=== PATIENT | female | born 1965 | race Caucasian/White ===

== ENCOUNTER 2018-12-23 06:05 | Day surgery (SDC) | payer OTHER ==
[~2018-12-23] VITALS: Ht 142.2 cm; Wt 59.0 kg
[~2018-12-23 06:05] MED LIST: COQ-10100 MG PO; CORAL CALCIUM1 EAC2 PO; DAILY VITAMIN1 EAC2 PO; ESTRADIOL1 EA10 TD; FEXOFENADINE HC60 MG PO; FLOVENT HFA12 G1 INH; IBUPROFEN200 MG PO; KRILL OIL 1,001 EAC1 PO; LINOLEIC ACID MISC; LUTEIN20 MG PO; NASONEX17 GM NAS; ORTHO TRI-CYCL1 EACH PO; PATADAY2.5 ML OP; PROBIOTIC1 EAC1 PO; PROMETRIUM200 MG PO; PROVENTIL HFA6.7 GM INH; TYLENOL EXTRA500 MG PO; VITAMIN D31000 UNIT PO
--- NOTE | 2018-12-23 08:38 | NUR ---
12/23/18 0838 Savita Lawson 0800 PT ARRIVED IN PACU SLEEPY WITH NO C/O'S. 0815 OXYGEN REMOVED. SATS 97% ON RA. AT BEDSIDE TALKING WITH PT. 0830 AWAKE TALKING TO STAFF. NO C/O'S.
--- NOTE | 2018-12-23 08:38 | NUR ---
PT IS BACK TO FROM PACU. SHE IS SLEEPY UPON ARRIVAL, BUT EASY TO AROUSE. SHE IS DENYING PAIN AND NAUSEA. CALL LIGHT IS WITHIN REACH. WATER ON BEDSIDE TABLE. NO ADDITIONAL NEEDS AT THIS TIME. WILL CONTINUE TO MONITOR.
--- NOTE | 2018-12-23 09:26 | NUR ---
VIET 0915: PT IS ASSISTED UP OOB TO THE BATHROOM. SHE IS ABLE TO VOID APPROXIMATELY 175ML'S OF YELLOW URINE. PT THREW HER TOLIET PAPER INTO THE HAT AND URINATED ON HER PERIPAD, WHICH SHE THREW IN THE GARBAGE. IT IS HARD TO DETERMINE THE AMOUNT OF DRAINAGE WAS/IS ON THE PERIPAD DUE TO BEING SATURATED IN URINE. SHE IS GIVEN A FRESH PERIPAD AND HELPED BACK TO HER ROOM. SHE REQUESTS SALTINE CRACKERS.
--- NOTE | 2018-12-23 10:23 | NUR ---
VIET 0950: PT HAS MET DC INSTRUCTIONS. SHE INDICATES THAT SHE WOULD LIKE TO GO HOME. DC INSTRUCTIONS ARE GIVEN VERBALLY WITH THE PRESENT. THEY VERBALIZE UNDERSTANDING AND ASK QUESTIONS. PT IS TAKEN TO VEHICLE BY VOLUNTEER IN A WHEELCHAIR.
--- NOTE | 2019-01-20 09:20 | OR ---
[facility] [address] [place], [place] [address] Signed DATE OF OPERATION: 12/23/2018 SURGEON: Nola Elkins MD PREOPERATIVE DIAGNOSIS: Postmenopausal bleeding, probable endometrial polyp. POSTOPERATIVE DIAGNOSIS: Postmenopausal bleeding, probable endometrial polyp, pending pathology. PROCEDURE: Hysteroscopy, D and C. ANESTHESIA: General MAC. ESTIMATED BLOOD LOSS: Minimal. DRAINS: None. INDICATIONS AND FINDINGS: The patient is a 53-year-old female, 2, para 1, SAB 1, who has been having abnormal postmenopausal bleeding. Hysterosonogram was done, which revealed a probable polyp. She is on a hormone replacement therapy with a combination of estrogen and progesterone. At the time of surgery, exam under anesthesia revealed a normal-size uterus. The cavity sounded 7 cm. The great majority of the cavity was atrophic with a single small polyp. PROCEDURE: The patient was prepped and draped in the dorsal lithotomy position. A weighted speculum was placed. The anterior lip of the cervix was visualized and grasped with a single-tooth tenaculum. The cavity sounded to 7 cm. The endocervical canal was then dilated with some difficulty to a #8 dilator. The MyoSure device was introduced and the cavity evaluated. It primarily was atrophic with a small polyp in the lower segment. The hysteroscope was removed and D and C was done with a small tissue found. The cervix was then evaluated after removal of the tenaculum and there was some bleeding from that site, which did not respond to pressure. A [id number] x2 was placed with good hemostasis Electronically Signed By: NOLA ELKINS MD 01/20/19 0920 PATIENT NAME: MUNIRA DON OPERATIVE REPORT DATE OF : 69 REPORT #: [id number] PHYSICIAN: NOLA ELKINS MD PCP: DIPESH OSBORN MD REPORT IS CONFIDENTIAL AND NOT TO BE RELEASED WITHOUT AUTHORIZATION [facility] [address], [place] [address] Signed noted. The remaining instruments removed. The patient was taken to the recovery room in good condition. All sponge and needle counts were correct. Nola Elkins MD PJW/MODL /[id number] cc: Dr. Dipesh Osborn Copies: ~ Electronically Signed By: NOLA ELKINS MD 01/20/19 0920 PATIENT NAME: MUNIRA DON OPERATIVE REPORT DATE OF : 69 REPORT #: [id number] PHYSICIAN: NOLA ELKINS MD PCP: DIPESH OSBORN MD REPORT IS CONFIDENTIAL AND NOT TO BE RELEASED WITHOUT AUTHORIZATION
== END 2018-12-23 09:55 | disposition home or self-care (01) ==
LOC: DS 06:05
PROVIDERS: Obstetrics & Gynecology
PROC: 0UDB7ZZ Extraction of Endometrium, Via Natural or Artificial Opening (ICD-10-PCS; 2018-12-23)
PROC: 0UJD8ZZ Inspection of Uterus and Cervix, Via Natural or Artificial Opening Endoscopic (ICD-10-PCS; 2018-12-23)
PROC: 0UB97ZZ Excision of Uterus, Via Natural or Artificial Opening (ICD-10-PCS; principal; 2018-12-23 06:45)
DX: N84.0 Polyp of corpus uteri (principal); E66.9 Obesity, unspecified; N95.2 Postmenopausal atrophic vaginitis; J45.909 Unspecified asthma, uncomplicated; F41.9 Anxiety disorder, unspecified; Z68.29 Body mass index [BMI] 29.0-29.9, adult
CPT/HCPCS: 00952; 94640; J1100; J1885; J2250; J2405; J2704; J2765; J3010; J7120

== ENCOUNTER 2020-12-04 06:35 | Day surgery (SDC) | payer OTHER ==
[~2020-12-04] VITALS: Ht 142.2 cm; Wt 59.1 kg
[2020-12-04] MEDS ORDERED: SINGULAIR10 MG PO (06:54)
--- NOTE | 2020-12-04 08:48 | NUR ---
12/04/20 0848 Savita Lawson 0807 PT ARRIVED IN PACU SLEEPY LAYING ON L SIDE. ABD SOFT AND PASSING FLATUS. 0820 RESTING. REU. 0830 SITTING UP IN BED SIPPING ON WATER. 0845 GETTING DRESSED WITH STAND BY ASSIST. DC INSTRUCTIONS GIVEN. ALL QUESTIONS ANSWERED.
--- NOTE | 2020-12-04 09:19 | NUR ---
CONNECTED WITH PT'S . NO NEEDS OR QUESIONS WAITING IN RM READING. GAVE BLESSING, WILL FOLLOW
--- NOTE | 2020-12-06 13:07 | OR ---
[facility] [address] [place], [place] [address] Signed DATE OF OPERATION: 12/04/2020 SURGEON: Bear Nunn MD PREOPERATIVE DIAGNOSIS: Colon screening. POSTOPERATIVE DIAGNOSIS: Normal colon to cecum. PROCEDURE: Total colonoscopy. ANESTHESIA: Intravenous sedation, fentanyl 100 mcg, Versed 3 mg. INDICATION: This 55-year-old woman, patient of Dr. Osborn and Dr. Nola Elkins and is referred for screening colonoscopy. She has an uncertain family history regarding colon cancer as she is adopted. She has no symptoms of bleeding, diarrhea, or constipation. She is admitted to undergo screening colonoscopy. She understands the risks of bleeding, infection, and perforation. FINDINGS: The prep was excellent. Complete colonoscopy was undertaken of the cecum. There was no sign of polyps, diverticular formation, colitis, or cancer. DESCRIPTION OF PROCEDURE: The patient was brought to the endoscopy suite and placed in lateral decubitus position, given intravenous sedation to the point of slurred speech and nystagmus with full cardiopulmonary monitoring. Digital rectal examination was normal. An Olympus video colonoscope was passed in the rectum and manipulated throughout the colon ultimately visualizing the cecum. The ileocecal valve was normal. The scope was not easily advanced to intubate the cecum itself. Therefore, a biopsy forceps was used to elevate the mucosa behind the ileocecal valve identifying it as normal. The scope was then withdrawn more fully and examination throughout showed no sign of polyps, diverticular formation, colitis, or cancer. Retroflex view was normal as well. The scope was removed. The patient was taken to the recovery room in good condition. Electronically Signed By: BEAR NUNN MD 12/06/20 1307 PATIENT NAME: MUNIRA DON OPERATIVE REPORT DATE OF : 69 REPORT #: [id number] PHYSICIAN: BEAR NUNN MD PCP: DIPESH OSBORN MD REPORT IS CONFIDENTIAL AND NOT TO BE RELEASED WITHOUT AUTHORIZATION [facility] [address] [place], [place] [address] Signed CONCLUDING DIAGNOSIS: Normal colon to cecum. PLAN: Recommend a repeat colonoscopy in 10 years based on current standards, sooner if symptoms should develop include bleeding, diarrhea, or constipation. MD BOAZ Garcia/MODL /[id number] cc: MD Dr. Anurag Storm Copies: NOLA ELKINS MD ~ Electronically Signed By: BEAR NUNN MD 12/06/20 1307 PATIENT NAME: MUNIRA DON OPERATIVE REPORT DATE OF : 69 REPORT #: [id number] PHYSICIAN: BEAR NUNN MD PCP: DIPESH OSBORN MD REPORT IS CONFIDENTIAL AND NOT TO BE RELEASED WITHOUT AUTHORIZATION
== END 2020-12-04 08:50 | disposition home or self-care (01) ==
LOC: DS 06:35 → OPS 06:35 → DS 06:45 → OPS 08:50
PROVIDERS: ATTEND Surgery
DX: Z12.11 Encounter for screening for malignant neoplasm of colon (principal); J45.909 Unspecified asthma, uncomplicated; Z87.898 Personal history of other specified conditions; Z79.899 Other long term (current) drug therapy
CPT/HCPCS: 99153; G0500; J2250; J3010; J7121

== ENCOUNTER 2025-06-08 17:21 | Emergency (ER) | payer OTHER ==
[~2025-06-08] VITALS: Ht 142.2 cm; Wt 58.5 kg
[~2025-06-08 17:21] MED LIST changes: +SINGULAIR10 MG PO
[2025-06-08] MEDS ORDERED: SODIUM CHLORIDE 0.9% 1,000 ML IV PRN (17:45)
[2025-06-08 17:59] LABS: BASOPHILS 0.1 % (0.1-1.2); EOSINOPHILS 0 % (0.7-5.8); LYMPHOCYTES 6.1 % (19.3-51.7); MCH 31.6 PG (25.6-32.2); MCHC 35.0 g/dL (32.2-35.5); MCV 90.2 fL (79.4-94.8); MONOCYTES 2.7 % (4.7-12.5); NEUTROPHILS 90.8 % (34.0-71.1); RBC 4.50 M/uL (3.93-5.22)
[2025-06-08 18:14] LABS: ALT (SGPT) 46.0 U/L (14-59); AST (SGOT) 27.0 U/L (15-37); GLOMERULAR FILTRATION RATE,EST 79.0 mL/min (>60); PROTEIN, TOTAL 7.9 g/dL (6.4-8.2); UREA NITROGEN 13.0 mg/dL (7-18)
[2025-06-08] MEDS ORDERED: KETOROLAC TROMETHAMINE 15 MG/ML VIAL IV ONE (18:15)
[2025-06-08 19:05] LABS: BLOOD/HGB, URINE TRACE-I (Negative); KETONE, URINE SMALL (Negative); LEUK ESTERASE, URINE TRACE (negative); NITRITE, URINE NEGATIVE (negative)
[2025-06-08 19:11] LABS: CRYSTALS, URINE AMORPHOUS PHOSPH 1+ (0-1+)
[2025-06-08 19:12] LABS: BACTERIA, URINE NONE SEEN /hpf (negative); CASTS, URINE NONE SEEN \\lpf; REFLEX CULTURE, URINE No (No)
[2025-06-08] MEDS ORDERED: ONDANSETRON ODT8 MG PO (20:10)
[2025-06-08] MEDS ORDERED: HYDROCODON-ACE1 EA10 PO (20:10)
[2025-06-08] MEDS ORDERED: FLOMAX0.4 MG PO (20:10)
[2025-06-08] MEDS ORDERED: HYDROCODONE BIT/ACETAMINOPHEN 5/325 MG 1 TAB HOME.PACK PO ONE (20:45)
[2025-06-08] MEDS ORDERED: ONDANSETRON 4 MG HOME.PACK SL ONE (20:45)
[2025-06-08 21:03] VITALS: BP 165/98
== END 2025-06-08 21:05 | disposition home or self-care (01) ==
LOC: ED 17:21
PROVIDERS: Emergency Medicine
DX: N13.2 Hydronephrosis with renal and ureteral calculous obstruction (principal); Z91.040 Latex allergy status; Z88.8 Allergy status to other drugs, medicaments and biological substances; Z79.899 Other long term (current) drug therapy
CPT/HCPCS: 36415; 74177; 80053; 81001; 83605; 85025; 85610; 85730; 87040; 96375; 99284-25; A9270; J1885; J2405; Q9967

== ENCOUNTER 2025-09-29 05:57 | Day surgery (SDC) | payer OTHER ==
[2025-09-26 16:34] VITALS: BP 150/68
[2025-09-29] VITALS (11 sets, daily range): BP systolic 128–184; BP diastolic 70–96
[~2025-09-29] VITALS: Ht 139.7 cm; Wt 55.4 kg
[~2025-09-29 05:57] MED LIST changes: +BILBERRY100 MG PO; +FLOMAX0.4 MG PO; +FLONASE ALLERG9.9 ML NAS; -FLOVENT HFA12 G1 INH; +HYDROCODON-ACE1 EA10 PO; +LACTATED RINGER'S 1,000 ML IV SCH; +ONDANSETRON ODT8 MG PO; -PROVENTIL HFA6.7 GM INH; +VENTOLIN HFA18 GM INH
[2025-09-29] MEDS ORDERED: SODIUM CHLORIDE 0.9% 40 ML IV ONE (06:46)
[2025-09-29] MEDS ORDERED: BUPIVACAINE HCL 0.25% 50 ML MDV ONE (06:50)
[2025-09-29] MEDS ORDERED: HEParin SOD (PORCINE) 5,000 UNIT/ML SDV SUB-Q SCH (07:00)
[2025-09-29] MEDS ORDERED: LIDOCAINE HCL 1% 5 ML SDV INJ ONE (07:00)
[2025-09-29] MEDS ORDERED: IBLOOD GLUCOSE TEST STRIP 1 EA TEST VI PRN ×2 (07:00→08:45)
[2025-09-29] MEDS ORDERED: CEFAZOLIN SODIUM 2 GM in SODIUM CHLORIDE 0.9% 100 ML IV SCH (07:00)
[2025-09-29] MEDS ORDERED: LIDOCAINE HCL 2% 5 ML SDV ONE (07:30)
[2025-09-29] MEDS ORDERED: ACETAMINOPHEN 1,000 MG/100 ML VIAL ONE (07:30)
[2025-09-29] MEDS ORDERED: SUCCINYLCHOLINE IN 0.9% NACL 200 MG/10 ML SYRINGE ONE (07:30)
[2025-09-29] MEDS ORDERED: ROCURONIUM BROMIDE 50 MG/5 ML SYR ONE (07:30)
[2025-09-29] MEDS ORDERED: DEXAMETHASONE SOD PHOS 4 MG/ML VIAL ONE (07:30)
[2025-09-29] MEDS ORDERED: fentaNYL citrate 100 MCG/2 ML VIAL ONE ×2 (07:30→08:10)
[2025-09-29] MEDS ORDERED: SUGAMMADEX SODIUM 200 MG/2 ML ML ONE (07:30)
[2025-09-29] MEDS ORDERED: MIDAZOLAM HCL 2 MG/2 ML VIAL ONE (07:31)
[2025-09-29] MEDS ORDERED: KETOROLAC TROMETHAMINE 30 MG/ML VIAL ONE (08:10)
[2025-09-29] MEDS ORDERED: GLYCOPYRROLATE 1 MG/5 ML MDV ONE (08:17)
[2025-09-29] MEDS ORDERED: NALOXONE HCL 0.4 MG SYR IV PRN ×2 (08:45→09:45)
[2025-09-29] MEDS ORDERED: fentaNYL citrate 50 MCG/ML SDV IV PRN (08:45)
[2025-09-29] MEDS ORDERED: HYDROmorphone HCL 1 MG/ML SYR IV PRN (08:45)
[2025-09-29] MEDS ORDERED: PROCHLORPERAZINE EDISYLATE 10 MG/2 ML VIAL IV PRN (08:45)
--- NOTE | 2025-09-29 09:27 | NUR ---
09/29/25 0927 Keyonna Summers 7786-PATIENT ARRIVED TO PACU ON 6L MASK NONAROUSABLE ORAL AIRWAY IN PLACE. SR HR 70-80'S. IVF INFUSING. ABDOMEN 4 LAP SITES INTACT.
[2025-09-29] MEDS ORDERED: HYDROMORPHONE HC4 MG PO (09:36)
[2025-09-29] MEDS ORDERED: IBUPROFEN600 MG PO (09:36)
[2025-09-29] MEDS ORDERED: ONDANSETRON ODT8 MG PO (09:37)
[2025-09-29] MEDS ORDERED: ACETAMINOPHEN500 MG PO (09:37)
[2025-09-29] MEDS ORDERED: ACETAMINOPHEN 500 MG TAB PO PRN (09:45)
[2025-09-29] MEDS ORDERED: IBUPROFEN 600 MG TAB PO PRN (09:45)
[2025-09-29] MEDS ORDERED: LACTATED RINGER'S 1,000 ML IV SCH (09:45)
--- NOTE | 2025-09-29 10:19 | NUR ---
1006- RECIEVED REPORT FROM FLAT FOLDER. PT VITALS AND SURGICAL SITES ARE NOTED. PT STATED SHE IS HAVING SOME NAUSEA AND HAS VOIDED URINE TWICE SINCE PROCEDURE, ONCE IN PACU AND ONCE RIGHT AFTER COMING TO DS FOR POST OP. SNAKCS AND WATER PROVIDED BUT PT STATES "I NEED TO GO REALLY SLOW WITH THAT" RN AKNOWLEDGED AND REASSURED PT. PT IS DROWSY BUT ARROUSES TO VERBAL STIMULI. RR EQUAL. 1010- PT REPORTS HAVING ISSUES WITH MEDICATIONS, SPECIFICALLY NARCOTICS. PT HAS ALLERGY/ADVERSE REACTION OF SEVERE NAUSEA AND DIZZINESS WITH HYDROCODONE. HYDROMOPHONE WAS PRESCIRBED BUT PT IS NOT SURE OF PREVIOUS REACTIONS TO MEDICATION.
[2025-09-29] MEDS ORDERED: SEVOFLURANE 250 ML BTL INH ONE (10:43)
--- NOTE | 2025-09-29 11:13 | NUR ---
1100- PT REQUEST TO VOID AGAIN. PT ASSISTED TO BEDSIDE KOMODE. PT DENIES FEELING DIZZY WITH SITTING AT SIDE OF BED. PT REPORTS PAIN IS A 6/10. PT ENCOURAGED TO EAT SO WE CAN PREVENT N/V WITH ORAL PAIN MEDICATION. PT VERBALIZED UNDERSTANDING. PT SIPPING ON FLUIDS AND HAD A SMALL BITE OF JELLO. PT VOICED CONCERN WITH PAIN MEDICATION BECAUSE SHE HAS NOT HAD IT BEFORE AND STATED SHE FEELS BETTER WITH TAKING VICODIN. CONTACTED ABOUT PT REQUEST TO CHANGE MED.
--- NOTE | 2025-09-29 11:46 | NUR ---
1135 PT REPORTS NEEDING TO URINATE. PT UP TO COMMODE WITH ASSISTANCE. PT VOIDED SOME IN BED. BED CHANGE DONE WHILE PT ON COMMODE. PT ABLE TO VOID CLEAR YELLOW URINE. PT ABLE TO AMBULATE BACK TO BED WITH ASSISTANCE. PT HAS CALL LIGHT WITHIN REACH.
--- NOTE | 2025-09-29 13:10 | NUR ---
1308 RN IN ROOM WITH PT. PT NAUSOUS AND BEGINS VOMITING. PT VOMITED 100 MLS OF ORANGE EMESIS INTO BAG. PT REPORTS FEELING BETTER AFTER VOMITING. [address] ABOUT NAUSEA. DR AWARE OF 4MG OF ZOFRAN BEING GIVEN. DR GIVES VERBAL ORDER FOR .625 DROPERADOL IV ONCE NOW IF NEEDED FOR NAUSEA.
--- NOTE | 2025-09-29 14:24 | NUR ---
1400 PT UP TO BEDSIDE COMMODE AGAIN WITH ASSISTANCE. PT ABLE TO VOID CLEAR YELLOW URIN.E 1410 PT BACK IN BED. PT NAUSOUS AND WREACHING. 1416 COMPAZINE ORDER GIVEN PER EMAR. PURIWICK PLACED, DISCUSSED WITH PT ABOUT PLACEMENT TO ASSIT WITH PT NOT GETTING UP SO FREQUENTLY. PT AND SPOUSE UNDERSTANDING. PT HAS O2 MONITOR IN PLACE. PT HAS CALL LIGHT WITHIN REACH AND EMESIS BAG IN HAND. PT HAS NOT THROWN UP ANYMORE BUT PT STILL REPORTING NAUSEA.
--- NOTE | 2025-09-29 15:24 | NUR ---
1510 HOURLY ROUNDING WITH PT. PT RESTING WITH EYES CLOSED, PT RESPONDS TO VERBAL STIMULI. PT SPOUSE FEEDING PT JELLO, PT REPORTS NAUSEA BUT PT IS NOT WRECHING. PT HAS SPOUSE AT BEDSIDE, CALL LIGHT WITHIN REACH. PT REPORTS TOLERABLE 4/10 PAIN.
--- NOTE | 2025-09-29 15:31 | OR ---
[facility] [address] [place], [place] [address] Signed DATE OF OPERATION: 09/29/2025 SURGEON: Bear Nunn MD PREOPERATIVE DIAGNOSES: 1. Chronic calculous cholecystitis with dilated common bile duct. 2. Difficult airway. POSTOPERATIVE DIAGNOSES: 1. Chronic calculous cholecystitis with white bile. Normal cholangiogram. 2. Difficult airway. PROCEDURES: 1. Laparoscopic cholecystectomy with intraoperative cholangiogram, prolonged, complicated, difficult. 2. Surgeon-directed fluoroscopy. ANESTHESIA: General endotracheal, Bennie Syed, [employer] and local 10 mL of 0.25% Marcaine with epinephrine. INDICATION: This 60-year-old woman is a patient of Dr. Dipesh Osborn who has had episodes of upper abdominal pain, bloating and nausea. She had one episode of four days of feeling sick and findings were suggestive of cholecystitis. She did undergo a gallbladder ultrasound under the direction of Dr. Osborn, her primary care provider, noting to have a gallstone wedged in the infundibulum of the gallbladder with distention of the gallbladder and thickening. The common bile duct was slightly dilated as well. She is admitted at this time to undergo cholecystectomy preferred by laparoscopic approach. She understands the risk of bleeding, infection, bile duct injury, need for open surgery, and other unforeseen complications. Understanding this, she wished to proceed. FINDINGS: The gallbladder was quite markedly chronically inflamed and dense. Dense omental adhesions were noted adherent to the gallbladder, which took a fair amount of time to free the gallbladder up. The gallbladder could not be grasped and required decompression with needle device. The decompressing needle demonstrated clear bile obviously a sign of chronic obstruction of the outlet of the gallbladder. The gallbladder, once excised and opened on the back table, had a chronic white appearing Electronically Signed By: BEAR NUNN MD 09/29/25 1531 PATIENT NAME: MUNIRA DON OPERATIVE REPORT DATE OF : 69 REPORT #: [id number] PHYSICIAN: BEAR NUNN MD PCP: DIPESH OSBORN MD REPORT IS CONFIDENTIAL AND NOT TO BE RELEASED WITHOUT AUTHORIZATION [facility] [address] [place], [place] [address] Signed mucosa with three 2 cm gallstones. Cholangiogram was performed, which did show a somewhat dilated common duct, but no sign of filling defect or ampullary neoplasm. Contrast was noted passing into the duodenum. The cystic duct was relatively generous and in a spiral configuration. Cholecystectomy was performed safely and effectively, though the procedure was prolonged, complicated, and difficult. On a separate note, she was assessed to have a difficult Mallampati 4 airway prior to operation by the bioanalyst. Intubation proceeded without problem with use of a GlideScope and a bougie, though she would be considered to have a difficult airway on the basis of her body habitus and so on. DESCRIPTION OF PROCEDURE: The patient was brought to the operating room and given a general endotracheal anesthetic using a GlideScope and bougie device. This was accomplished with the endotracheal tube over the bougie of course. It was done deftly and without hazard of complication. After successful intubation and preoperative administration of Ancef and sequential compression device stockings and heparin subcutaneously, the abdomen was prepared with a chlorhexidine solution and draped sterilely. An infraumbilical incision was made and using an open Vincent cannula technique, pneumoperitoneum was achieved to a level of 14 mmHg of carbon dioxide gas. Intra-abdominal inspection showed the liver to be mildly fatty infiltrated. The gallbladder to be barely perceptible and densely adherent to surrounding omental adhesions. Three additional trocars were placed in the usual configuration in the subxiphoid, right midclavicular, and right anterior axillary line. The usual maneuvers of freeing the omentum from the gallbladder were not successful and therefore, electrocautery was used ultimately freeing up a window enough to attempt grasping the gallbladder. It was very firm and dense and it could not be grasped. On that basis, a needle trocar decompression device was used to decompress the gallbladder of bile. The bile was clear (white bile) indicative of complete outlet obstruction of the gallbladder. Once decompressed, the gallbladder could be grasped and elevated using blunt dissection primarily. Omental adhesions were taken down fully exposing the gallbladder. Gallbladder was elevated cephalad and secured to the table and examination of the infundibulum showed a large stone quite obviously obstructing the outlet of the gallbladder. This was slightly difficult to grasp it with various maneuvers, it was accomplished using blunt and electrocautery dissection. The triangle of Calot was dissected free. Cystic arterial branch was identified and doubly clipped and divided. Meticulous care was maintained in dissecting the gallbladder, the gallbladder cystic duct junction. Ultimately, cystic duct was well dissected free and a clip was applied across the gallbladder cystic duct junction very high in the cystic duct. A transverse choledochotomy was made in the cystic duct allowing for egress of clear bile. Using the Hicks type cholangiocatheter, intraoperative cholangiography was undertaken showing free Electronically Signed By: BEAR NUNN MD 09/29/25 1531 PATIENT NAME: MUNIRA DON OPERATIVE REPORT DATE OF : 69 REPORT #: [id number] PHYSICIAN: BEAR NUNN MD PCP: DIPESH OSBORN MD REPORT IS CONFIDENTIAL AND NOT TO BE RELEASED WITHOUT AUTHORIZATION [facility] [address] [place], [place] [address] Signed flow of contrast into the biliary tree. There was slight hesitation of contrast passage through the ampulla, though it did not appear neoplastic. The common bile duct and proximal biliary tree were slightly dilated, but there was no evidence of neoplasm or stone. Satisfied that there was no other abnormality and noting that a spiral configuration of the cystic duct was present, the cystic duct was triply clipped and then divided. The gallbladder was then dissected free in a retrograde fashion using electrocautery. Slight spillage of retained fluid was noted, which had mucopurulent appearance. Not much was spilled and certainly no stones were spilled. The gallbladder once freed from the gallbladder from the hepatic bed was then placed in an endobag and extracted through the infraumbilical port site. The gallbladder was opened on the back table and found to have pale, nearly white mucosa. No evidence of neoplasm and three nearly 2 cm large gallstones. Irrigation was undertaken in subhepatic space. There was no sign of bile leak, bleeding, or other problems. Excess irrigation fluid was suctioned free and plan turned towards closure. The infraumbilical fascial incision was reapproximated with interrupted 0 Vicryl suture. Irrigation was undertaken in the trocar sites and skin closed with interrupted 3-0 Vicryl after application of 10 mL of 0.25% Marcaine with epinephrine. Steri-Strips were applied. The patient was carefully extubated and transferred to recovery room in good condition having suffered no complication. Sponge, needle, and instrument counts were reported as correct x3. The operation was prolonged, complicated, and difficult lasting more than two times the usual length of time. Bear Nunn MD JM/MODL /[id number] cc: Dipesh Osborn MD Copies: DIPESH OSBORN MD ~ Electronically Signed By: BEAR NUNN MD 09/29/25 1531 PATIENT NAME: MUNIRA DON OPERATIVE REPORT DATE OF : 69 REPORT #: [id number] PHYSICIAN: BEAR NUNN MD PCP: DIPESH OSBORN MD REPORT IS CONFIDENTIAL AND NOT TO BE RELEASED WITHOUT AUTHORIZATION
--- NOTE | 2025-09-29 16:21 | NUR ---
1420- PT RESTING WITH EYES CLOSED. PT PAIN, VITALS, AND SURGICAL SITES NOTED. WHEN ASKED IF PT IS STILL EXPERIENCING NAUSEA AND SHE STATED " A LITTLE BIT". PT WAS ABLE TO KEEP DOWN JELLO WITHOUT REPEAT VOMITING. 1425- REVIEWING DC PAPERWORK WITH PT AND FAMILY AND HELPING PT GET UP TO RESTROOM.
--- NOTE | 2025-09-29 16:41 | NUR ---
1640- PT UP AND AMBULATED TO BATHROOM WITH ASSISTANCE FROM FAMILY AND RN. PT IS SLOW MOVING AND REPORTS DIZZINESS UPON STANDING BUT ABLE TO MOVE WITH ASSISTANCE. PT HAS A HISTORY OF BALANCE IMPAIRMENT AND PARTNER IS CAPABLE OF AND USED TO SUPPORTING AND ASSISTING PATIENT WITH MOVEMENTS AND TRANSFERING.
--- NOTE | 2025-09-29 16:52 | NUR ---
1452- PT AMBULATED BACK TO ROOM FROM RESTROOM NEEDING MAXIMUM ASSISTANCE. WAS HOLDING PT UP AND REPORTS HE IS USED TO DOING THIS, BUT RN NOTES THAT PT IS NOT BACK TO BASELINE. PT IS DROWSY BUT ARROUSABLE TO VERBAL STIMULI AND ABLE TO FOLLOW COMMANDS WITH SLOW MOVEMENTS. PT ALSO REPORTED FEELING NAUSEOUS AGAIN AFTER MOVEMENT. BOTH RNS CONCERNED FOR PT SAFETY AT HOME DUE TO INCREASE RISK OF FALLING AND PT HIGH NEED FOR ASSISTANCE.
--- NOTE | 2025-09-29 17:25 | NUR ---
1715- MD NOTIFIED OF PT CONDITION. MD PLACED A VERBAL ORDER FOR PT TO HAVE EXTENDED RECOVERY TIME ON MS TO MONITOR UNTIL RETURNED TO BASELINE. PT AND FAMILY AWARE AND VERBALIZED UNDERSTANDING.
--- NOTE | 2025-09-29 17:55 | NUR ---
Patient arrived to the medical floor surgery. Patient is drowsy, easily arousable to verbal stimuli, pt responds to questions appropriately. Patient's vitals are stable, 95% oxygen on room air, respirations non labored. Patient's lap sites are closed, steri strips in place. Patient oriented to room and call light. Pt's at bedside.
--- NOTE | 2025-09-29 18:54 | NUR ---
1744- REPORT GIVEN TO KETAN RN. PT ARRIVED IN MS RM112 VIA STRETCHER. PT WAS DROWSY WITH EYES CLOSED BUT RESPONDED TO VERBAL STIMULI AND FOLLOWS COMMANDS. PT TRANSFERED TO MS BED VIA PULL SHEET BY 4 RNS WITHOUT ISSUE. SIDE RAIL UP AND BED LOCKED IN LOWEST POSITION. MOST RECENT VITALS GIVEN TO RN. QUESTIONS AND COCERNS ANSWERED. 2 MS RNS AT BEDSIDE WITH PT WHEN REPORTING RN LEFT ROOM. CARE TURNED OVER AT THIS TIME.
--- NOTE | 2025-09-29 19:50 | NUR ---
REPORT RECEIVED FROM RITO SOW. PT LAYING IN BED DROWSY BUT RESPONSIVE, RESPIRATIONS EVEN AND UNLABORED. NO C/O PAIN. IV FLUID INFUSING WELL. VITAL SIGNS TAKEN AND RECORDED. DENIES FURTHER NEEDS. CALL LIGHT WITHIN REACH.
--- NOTE | 2025-09-29 22:40 | NUR ---
PT LAYING IN BED, STILL DROWSY BUT RESPONDING WELL. RESPIRATIONS EVEN AND UNLABORED. REPORTS PAIN IS TOLERABLE AT THE MOMENT. FULL ASSESSMENT DONE. DENIES NEEDS AT THE MOMENT. CALL LIGHT IN REACH.
--- NOTE | 2025-09-29 23:21 | NUR ---
PT IS DROWSY BUT RESPONSIVE. RESPIRATIONS EVEN AND UNLABORED. PAIN IS 4/10 STATED IT IS TOLERABLE FOR HER. C/O NAUSEA ZOFRAN GIVEN ORDERED. CHANGED PUREWICK PER PT REQUEST. REPOSITIONED PT. PT FELL BACK TO SLEEP. NO FURTHER NEEDS AT THE MOMENT. CALL LIGHT IN REACH.
[2025-09-30 01:51] VITALS: BP 153/78
--- NOTE | 2025-09-30 01:53 | NUR ---
LOT WORKER OBTAINED VITALS AND I&O. PT STATES NO NEEDS AT THIS TIME. CALL LIGHT WITHIN REACH AND BED ALARM ON,
[2025-09-30 02:30] VITALS: BP 153/78
--- NOTE | 2025-09-30 02:32 | NUR ---
PT LAYING IN BED, RESPIRATIONS EVEN AND UNLABORED. IV FLUID INFUSING WELL. SIGNIFICANT OTHER PRESENT IN PT'S ROOM. NO APPARENT NEEDS NOTED AT THIS TIME. CALL LIGHT WITHIN REACH.
[2025-09-30] MEDS ORDERED: ALBUTEROL SULFATE 0.083% 3 ML VIAL INH PRN (03:45)
--- NOTE | 2025-09-30 04:08 | NUR ---
PT CALLED AND C/O 5/10 PAIN. PT WAS EATING JELLO AT THE MOMENT, SEEMS TO TOLERATE IT. TYLENOL GIVEN FOR PAIN ORDERED. SHORTLY AFTER PT TOOK THE TYLENOL PT GOT NAUSEATED AND VOMITTED 100 ML OF EMESIS. PT HAS NOT VOIDED MUCH OVERNIGHT, ENCOURAGED PT TO TRY TO GET UP TO THE BSC, 1PA CGA, FAIRLY TOLERATED. PT VOIDED 200 ON THE COMMODE AND TOOK A FEW STEPS NEAR THE BED AND BACK. PT VERBALIZED FEELING BETTER AFTER VOMITING. DENIES FURTHER NEEDS. CALL LIGHT WITHIN REACH.
[2025-09-30 05:20] VITALS: BP 167/90
--- NOTE | 2025-09-30 05:21 | NUR ---
CORE WINDING OPERATOR OBTAINED VITALS AND I&O. PT STATES NO NEEDS AT THIS TIME. CALL LIGHT WITHIN REACH AND BED ALARM ON.
[2025-09-30 05:28] VITALS: BP 167/90
--- NOTE | 2025-09-30 05:38 | NUR ---
PT LAYING IN BED. RESPIRATIONS EVEN AND UNLABORED. BOWEL TONES HYPOACTIVE. DENIES PASSING GAS. NO NAUSEA AT THE TIME OF REASSESSMENT. NO C/O PAIN. DENIES FURTHER NEEDS. CALL LIGHT IN REACH.
--- NOTE | 2025-09-30 07:29 | NUR ---
Patient is resting in bed, eyes closed, respirations non labored. Per report, pt slept well throughout the night. Patient's iv fluids infusing per order. Pt's at bedside.
--- NOTE | 2025-09-30 08:35 | NUR ---
PATIENT IN BED AT THIS TIME. [employer] CHARTED HOURLY ROUNDS. CALL LIGHT WITHIN REACH, NO FURTHER NEEDS.
--- NOTE | 2025-09-30 08:50 | NUR ---
PATIENT IN BED AT THIS TIME. BREAD AND PASTRY BAKER ASSISTED PATIENT FROM BEDSIDE COMMODE BACK TO BED. PATIENT STATED THAT HER ASSISTED HER TO COMMODE FROM BED. THIS BREAD AND PASTRY BAKER REMINDED PATIENT TO USE CALL LIGHT IF SHE NEEDS ASSISTANCE. CALL LIGHT WITHIN REACH, NO FURTHER NEEDS.
[2025-09-30] MEDS ORDERED: ACAI BERRY500 MG PO (08:59)
--- NOTE | 2025-09-30 09:00 | NUR ---
MED REC COMPLETE
--- NOTE | 2025-09-30 09:33 | NUR ---
Patient awake, alert and oriented x3, no acute distress. Patient tolerated 20% of her breakfast, she denies nausea. Admin tylenol 650mg po and ibuprofen 600mg po for reports of 3/10 abd pain. Planned a walk with patient in approx 20 min after pain meds start working, pt receptive to plan. left to get RX filled.
[2025-09-30 10:13] VITALS: BP 158/93
--- NOTE | 2025-09-30 10:14 | NUR ---
PATIENT IN CHAIR AT THIS TIME. TREE WORKER CHARTED VITALS AND I&O'S. TREE WORKER NOTIFIED RITO SOW ABOUT PATIENTS EMESIS. RITO SOW AND THIS TREE WORKER WALKED WITH PATIENT. CALL LIGHT WITHIN REACH, NO FURTHER NEEDS.
--- NOTE | 2025-09-30 10:20 | NUR ---
Spoke with Sully. She could not dc to home last after nausea. Pt states she has a long history of nausea and a very senstivie gag reflex. She states she is painful and nauseated. She does not want medication as she feels it will make her vomit. She has a cane at home. She mostly walks with her and states she has balance issues from [employer] and was a Premie at . She denies any needs. She will go home with her spouse and 17 yo son when medically ready for dc. Rn updated pt has complained of nausea and pain.
--- NOTE | 2025-09-30 10:45 | NUR ---
Patient took a walk, tolerated well SBA. Patient vomited x1 after eating a bit of jello-pt reports she has a chronic vomiting issue due to "being premature" and having a sensitive gag reflex. Admin zofran 4mg iv at this time. Patient reports nausea subsided shortly after she vomited. Abd lap sites are healing well, steri strips in placed, puncture sites closed. Dr Corrigan updated regarding patient status. Patient is ok to discharge home per his phone report.
--- NOTE | 2025-09-30 10:49 | NUR ---
UR CLINICAL REVIEW: [facility]-PER [facility] REVIEW MEETS SHORT STAY FOR DIFFICULTIES SP [place] WITH NEED FOR MONITORING AND SYMPTOM CONTROL. [facility] EXTENDED STAY 09/29/25 @ 172 ORDER MATCHES REG NO AUTH REQUIRED FOR OBS STAY DISCHARGE TO HOME WHEN STABLE. ADD 09/30/25 10/01/25
[2025-09-30 11:00] VITALS: BP 158/93
== END 2025-09-30 12:02 | disposition home or self-care (01) ==
LOC: DS 05:57 → MS 17:45 → DS 09-30 12:02
PROVIDERS: ATTEND Surgery
PROC: BF502Z0 Other Imaging of Bile Ducts using Fluorescing Agent, Intraoperative (ICD-10-PCS; 2025-09-29)
PROC: 0FT44ZZ Resection of Gallbladder, Percutaneous Endoscopic Approach (ICD-10-PCS; principal; 2025-09-29 07:30)
DX: K80.10 Calculus of gallbladder with chronic cholecystitis without obstruction (principal); K83.8 Other specified diseases of biliary tract; Z91.040 Latex allergy status; Z91.048 Other nonmedicinal substance allergy status
CPT/HCPCS: 00790; 74300; 94762; 96360; 96361; 96374; A9270; J0131; J0330; J0688; J1100; J1644; J1790; J1885; J2003; J2250; J2405; J2704; J3010; J3490; J7121; Q9967